=== PATIENT | female | born 1950 | race Caucasian/White ===

== ENCOUNTER → 2016-12-01 | Outpatient (CLI) | payer MEDICARE ==
[~2016-12-01] MED LIST: "\\\"WATER PILL\\\""; FISH OIL1 IU PO; MULTIVITAMIN FO1 CAP PO; PRILOSEC20 MG PO; SYNTHROID0.075 MG PO; VYTORIN 10 MG-11 TA1 PO; ZOFRAN ODT4 MG PO
[2016-12-01 10:17] LABS: BASO # 0.1 10*3/uL (0.0-0.1); BASO % 0.8 % (0.0-1.0); EOS # 0.1 10*3/uL (0.0-0.4); EOS % 1.4 % (1.0-4.0); HEMATOCRIT 45.5 % (37.0-47.0); HEMOGLOBIN 15.3 g/dl (12.0-16.0); LYMPH # 2.3 10*3/uL (1.3-4.4); LYMPH % 36.8 % (27.0-41.0); MEAN CELL VOLUME 90.6 fl (81.0-99.0); MEAN CORPUSCULAR HGB 30.5 pg (27.0-31.0); MEAN CORPUSCULAR HGB CONC 33.6 g/dl (33.0-37.0); MONO # 0.5 10*3/uL (0.1-1.0); MONO % 8.2 % (3.0-9.0); NEUT # 3.3 10*3/uL (2.3-7.9); NEUT % 52.6 % (47.0-73.0); PLATELET COUNT AUTOMATED 231 10*3/uL (130-400); RED BLOOD COUNT 5.02 10*6/uL (4.10-5.10); RED CELL DISTRI WIDTH 14.4 % (0-14.5); WHITE BLOOD COUNT 6.2 10*3/uL (4.8-10.8)
[2016-12-01 10:42] LABS: ALKALINE PHOSPHATASE 71 U/L (45-117); BILIRUBIN, TOTAL 0.5 mg/dl (0.2-1.0); BUN 11 mg/dl (7-24); CARBON DIOXIDE 30 mmol/L (21-32); CHLORIDE 106 mmol/L (98-107); CHOLESTEROL 163 mg/dL (<200); EST GLOM FILT AFRICAN AMERICAN > 60 ml/min; GLUCOSE 96 mg/dL (65-99); HDL CHOLESTEROL 61 mg/dl (40-60); LDL CHOLESTEROL 91 mg/dL (9-159); POTASSIUM 3.7 mmol/L (3.5-5.1); SGOT/AST 23 IU/L (3-35); SGPT/ALT 27 U/L (12-78); SODIUM 144 mmol/L (136-145); TOTAL PROTEIN 7.4 gm/dL (6.4-8.2); TRIGLYCERIDES 56 mg/dl (<150); VLDL CHOLESTEROL 11 mg/dL (6-40)
== END | disposition home or self-care (01) ==
LOC: LAB 09:42
PROVIDERS: Internal Medicine
DX: I10 Essential (primary) hypertension (principal); E03.9 Hypothyroidism, unspecified; E78.00 Pure hypercholesterolemia, unspecified; E55.9 Vitamin D deficiency, unspecified

== ENCOUNTER 2016-12-05 08:20 | Emergency (ER) | payer MEDICARE ==
[~2016-12-05] VITALS: Wt 79.4 kg
[2016-12-05 08:26] VITALS: BP 151/84
[2016-12-05] MEDS ORDERED: LIPITOR40 MG PO (08:29)
[2016-12-05] MEDS ORDERED: HCTZ/TRIAMTEREN1 TA3 PO (08:29)
[2016-12-05] MEDS ORDERED: POTASSIUM CHLO10 ME4 PO (08:29)
[2016-12-05] MEDS ORDERED: Motrin,Rufen800 MG PO (10:44)
== END 2016-12-05 11:03 | disposition home or self-care (01) ==
LOC: ED 08:20
DX: S40.012A Contusion of left shoulder, initial encounter (principal); S70.01XA Contusion of right hip, initial encounter; M54.2 Cervicalgia; F17.200 Nicotine dependence, unspecified, uncomplicated; Z79.899 Other long term (current) drug therapy; W22.8XXA Striking against or struck by other objects, initial encounter; Y93.9 Activity, unspecified; Y92.9 Unspecified place or not applicable; Y99.9 Unspecified external cause status

== ENCOUNTER → 2016-12-28 | Outpatient (CLI) | payer MEDICARE ==
[~2016-12-28] MED LIST changes: +HCTZ/TRIAMTEREN1 TA3 PO; +LIPITOR40 MG PO; +Motrin,Rufen800 MG PO; +POTASSIUM CHLO10 ME4 PO
== END | disposition home or self-care (01) ==
LOC: MAMMO 12-18 08:30
DX: Z12.31 Encounter for screening mammogram for malignant neoplasm of breast (principal)

== ENCOUNTER → 2017-06-04 | Outpatient (CLI) | payer MEDICARE ==
[2017-06-04 16:54] LABS: BASO # 0.1 10*3/uL (0.0-0.1); BASO % 0.7 % (0.0-1.0); EOS # 0.2 10*3/uL (0.0-0.4); EOS % 2.8 % (1.0-4.0); HEMATOCRIT 42.6 % (37.0-47.0); HEMOGLOBIN 14.3 g/dl (12.0-16.0); LYMPH # 2.1 10*3/uL (1.3-4.4); LYMPH % 30.4 % (27.0-41.0); MEAN CELL VOLUME 91.8 fl (81.0-99.0); MEAN CORPUSCULAR HGB 30.8 pg (27.0-31.0); MEAN CORPUSCULAR HGB CONC 33.6 g/dl (33.0-37.0); MEAN PLATELET VOLUME 10.3 fl (9.6-12.3); MONO # 0.8 10*3/uL (0.1-1.0); MONO % 11.9 % (3.0-9.0); NEUT # 3.8 10*3/uL (2.3-7.9); NEUT % 54.1 % (47.0-73.0); PLATELET COUNT AUTOMATED 211 10*3/uL (130-400); RED BLOOD COUNT 4.64 10*6/uL (4.10-5.10); WHITE BLOOD COUNT 7.1 10*3/uL (4.8-10.8)
[2017-06-04 17:12] LABS: ALBUMIN 4.1 gm/dl (3.1-4.5); BUN 8 mg/dl (7-24); CHLORIDE 104 mmol/L (98-107); CHOLESTEROL 187 mg/dL (<200); CREATININE 0.77 mg/dL (0.55-1.02); POTASSIUM 3.7 mmol/L (3.5-5.1); SGOT/AST 19 IU/L (3-35); SGPT/ALT 26 U/L (12-78); SODIUM 140 mmol/L (136-145); TOTAL PROTEIN 7.4 gm/dL (6.4-8.2); TRIGLYCERIDES 70 mg/dl (<150); VLDL CHOLESTEROL 14 mg/dL (6-40)
[2017-06-04 17:13] LABS: ALKALINE PHOSPHATASE 60 U/L (45-117); HDL CHOLESTEROL 70 mg/dl (40-60); LDL CHOLESTEROL 103 mg/dL (9-159)
[2017-06-04 17:19] LABS: FREE T4 1.13 ng/dl (0.76-1.46)
== END | disposition home or self-care (01) ==
LOC: LAB 16:26
PROVIDERS: Internal Medicine
DX: E03.9 Hypothyroidism, unspecified (principal); E78.00 Pure hypercholesterolemia, unspecified

== ENCOUNTER → 2019-06-20 | Outpatient (CLI) | payer MEDICARE, OTHER | END | disposition home or self-care (01) | LOC: LAB 14:35 | DX: R19.7 Diarrhea, unspecified (principal) ==

== ENCOUNTER → 2019-11-10 | Outpatient (CLI) | payer MEDICARE, OTHER | END | disposition home or self-care (01) | LOC: US 07:30 | DX: R22.42 Localized swelling, mass and lump, left lower limb (principal) ==